=== PATIENT | female | born 1960 | race American Indian/Alaskan Native ===

== ENCOUNTER 2016-12-10 15:56 | Emergency (ER) | payer BC ==
--- NOTE | 2016-12-10 19:59 | XRay Report ---
FINAL REPORT EXAM: XR FOOT 3 LT HISTORY: LEFT FOOT pain/trauma TECHNIQUE: AP, lateral, and oblique views of the left foot PRIORS: None. FINDINGS: There is no evidence for acute fracture or dislocation. No soft tissue swelling or radiopaque foreign bodies are seen. Bony mineralization is normal. Joint spaces are maintained. IMPRESSION: No acute soft tissue or bony abnormality noted.
--- NOTE | 2016-12-10 20:30 | Emergency Department Report ---
ED Lower Extremity HPI - General Chief Complaint: Extremity Injury, Lower Stated Complaint: FOOT/POSS SPRUNG ANKLE Time Seen by Provider: 12/10/16 20:10 Source: patient Mode of arrival: Ambulatory Limitations: No Limitations - History of Present Illness Initial Comments: 56-year-old female past medical history none presents with complaint of left lateral foot pain. Patient states that she was walking this morning she slightly inverted her left foot. Patient states that she subsequently developed mild pain at the lateral aspect of her left foot towards the lateral midfoot region. Exam patient is ambulatory with slight limp and left foot. Pain is currently 3 out of 10. Patient denies any other injuries. Denies falling. States that she momentarily lost her balance but steadied herself before falling. MD Complaint: foot injury Injury: Foot: Left (mild left lateral midfoot pain on palpation) Type of Injury: inversion Place: street/outdoors Severity: mild, moderate Severity scale (0 -10): 4 Improves With: nothing Worsens With: weight bearing Context: walking Associated Symptoms: ambulatory - Related Data Previous Rx's Medication Instructions Recorded Last Taken Type Naproxen [Naprosyn TAB] 500 mg PO BID PRN #20 tablet 12/10/16 Unknown Rx Allergies Allergy/AdvReac Type Severity Reaction Status Date / Time No Known Allergies Allergy Verified 12/10/16 16:06 ED Review of Systems ROS: Stated complaint: FOOT/POSS SPRUNG ANKLE Other details as noted in HPI Constitutional: denies: chills, fever Eyes: denies: eye pain, eye discharge, vision change ENT: denies: ear pain, throat pain Respiratory: denies: cough, shortness of breath, wheezing Cardiovascular: denies: chest pain, palpitations Endocrine: no symptoms reported Gastrointestinal: denies: abdominal pain, nausea, diarrhea Genitourinary: denies: urgency, dysuria, discharge Musculoskeletal: denies: back pain, joint swelling, arthralgia Skin: denies: rash, lesions Neurological: denies: headache, weakness, paresthesias Psychiatric: denies: anxiety, depression Hematological/Lymphatic: denies: easy bleeding, easy bruising ED Past Medical Hx - Surgical History Past Surgical History?: No - Social History Smoking Status: Never Smoker Substance Use Type: None - Medications Home Medications: Home Medications Medication Instructions Recorded Confirmed Last Taken Type Naproxen [Naprosyn TAB] 500 mg PO BID PRN #20 tablet 12/10/16 Unknown Rx ED Physical Exam - General Limitations: No Limitations General appearance: alert, in no apparent distress - Head Head exam: Present: atraumatic, normocephalic - Eye Eye exam: Present: normal appearance, PERRL, EOMI - ENT ENT exam: Present: mucous membranes moist - Neck Neck exam: Present: normal inspection - Respiratory Respiratory exam: Present: normal lung sounds bilaterally. Absent: respiratory distress - Cardiovascular Cardiovascular Exam: Present: regular rate, normal rhythm. Absent: systolic murmur, diastolic murmur, rubs, gallop - GI/Abdominal GI/Abdominal exam: Present: soft, normal bowel sounds - Extremities Exam Extremities exam: Present: normal inspection - Expanded Lower Extremity Exam Left Hip exam: Present: normal inspection, full ROM Upper Leg exam: Present: normal inspection, full ROM Knee exam: Present: normal inspection, full ROM Lower Leg exam: Present: normal inspection, full ROM Ankle exam: Present: normal inspection, full ROM (ankle dorsiflexion and plantar flexion fully intact on clinical exam distal dorsalis pedis and posterior tibial pulses strong to palpation) Foot/Toe exam: Present: tenderness (moderate left lateral midfoto pain, no ) Gait: Positive: antalgic 1 - Mild pain on palpation here no involvement of the lateral or medial malleolus. No significant amount of swelling 1 - Mild pain on palpation of the lateral aspect of the left foot, no obvious contusion or significant swelling or large deformity - Back Exam Back exam: Present: normal inspection - Neurological Exam Neurological exam: Present: alert, oriented X3, CN II-XII intact, abnormal gait (slighlty antlagic but pt can take 10+ steps wihtout assistance) - Psychiatric Psychiatric exam: Present: normal affect, normal mood - Skin Skin exam: Present: warm, dry, intact, normal color. Absent: rash ED Course Vital Signs 12/10/16 16:02 Temperature 98.2 F Pulse Rate 99 H Respiratory 16 Rate Blood Pressure 165/109 ED Lower Extremity MDM - Medical Decision Making A/P: Left foot sprain 1-Leo bandage, R ICE therapy, orthopedic shoe for comfort 2-naproxen when necessary for pain 3-follow up with podiatry 4-I advised patient to refrain from weight bearing exercises or standing for prolonged periods of time for the next several days in order for her foot sprain to heal Critical care attestation.: If time is entered above; I have spent that time in minutes in the direct care of this critically ill patient, excluding procedure time. ED Disposition Clinical Impression: Sprain of left foot Qualifiers: Encounter type: initial encounter Qualified Code(s): S93.602A - Unspecified sprain of left foot, initial encounter Disposition: DISCHARGED TO HOME OR SELFCARE Is pt being admited?: No Does the pt Need Aspirin: No Condition: Stable Instructions: Foot Sprain (ED), RICE Therapy (ED) Prescriptions: Naproxen [Naprosyn TAB] 500 mg PO BID PRN #20 tablet PRN Reason: Pain Referrals: YON HONG DPM [Staff Physician] - 3-5 Days Forms: Work/School Release Form(ED) Time of Disposition: 20:32
[2016-12-10 21:02] VITALS: BP 156/87
== END 2016-12-10 20:45 | disposition home or self-care (01) ==
LOC: ED 15:56
DX: S93.602A Unspecified sprain of left foot, initial encounter (principal); X50.1XXA Overexertion from prolonged static or awkward postures, initial encounter; Y93.01 Activity, walking, marching and hiking; Y99.8 Other external cause status; Y92.89 Other specified places as the place of occurrence of the external cause